=== PATIENT | male | born 1955 | race Caucasian/White ===

== ENCOUNTER 2016-09-08 14:07 | Emergency (ER) | payer SELFPAY ==
[~2016-09-08] VITALS: Ht 172.7 cm; Wt 81.6 kg
[2016-09-08] MEDS ORDERED: IV NORMAL SALINE 1000ML BAG 1,000 ML IV SCH (15:10)
[2016-09-08 15:12] VITALS: BP 143/75
[2016-09-08] MEDS ORDERED: ONDANSETRON PF 4 MG/2 ML VIAL. IV ONE (15:15)
[2016-09-08] MEDS ORDERED: MECLIZINE HCL 12.5 MG TABLET. PO ONE (15:15)
[2016-09-08 15:29] LABS: BASO % 0 % (0-3); EOS % 1 % (0-3); HEMATOCRIT 44.3 % (39.0-53.0); HEMOGLOBIN 14.8 g/dL (13.0-17.5); LYMPH # 1.6 x10^3/uL (1.0-4.8); LYMPH % 24 % (24-48); MEAN CORPUSCULAR HEMOGLOBIN 32 pg (25-35); MEAN CORPUSCULAR HGB CONC 33 g/dL (31-37); MEAN CORPUSCULAR VOLUME 96 fL (79-100); MONO % 9 % (0-9); NEUT % 66 % (31-73); PLATELET COUNT 227 x10^3/uL (140-400); RED BLOOD COUNT 4.63 x10^6/uL (4.30-5.70); RED CELL DISTRIBUTION WIDTH 13.5 % (11.5-14.5); WHITE BLOOD COUNT 6.6 x10^3/uL (4.0-11.0)
--- NOTE | 2016-09-08 15:39 | PHYS DOC ---
Past Medical History Past Medical History: High Cholesterol, Prostatitis Past Surgical History: No Surgical History Alcohol Use: Occasionally Drug Use: Marijuana Adult General Chief Complaint Chief Complaint: DIZZY/LIGHT HEADED HPI HPI Patient is a 60 year old male who presents with for intermittent dizziness/ lightheadedness that occurs when he goes from seated to standing position that started this morning. He states he gets very lightheaded, his vision narrows, and he feels he will pass out when he tries to stand up. He also has some nausea during that time. He denies symptoms currently. He denies chest pain, dyspnea, abdominal pain (as opposed to triage), fever or chills, vomiting, diarrhea, constipation, dysuria, hematuria, leg pain or swelling, palpitations, diaphoresis, orthopnea, headache, vision changes, diplopia. Review of Systems Review of Systems Constitutional: Denies fever or chills [] Eyes: Denies change in visual acuity, redness, or eye pain [] HENT: Denies nasal congestion or sore throat [] Respiratory: Denies cough or shortness of breath [] Cardiovascular: No additional information not addressed in HPI [] GI: Denies abdominal pain, nausea, vomiting, bloody stools or diarrhea [] : Denies dysuria or hematuria [] Musculoskeletal: Denies back pain or joint pain [] Integument: Denies rash or skin lesions [] Neurologic: Denies headache, focal weakness or sensory changes [] Endocrine: Denies polyuria or polydipsia [] Current Medications Current Medications Current Medications Medications (Trade) Dose Ordered Sig/Philomena Start Time Stop Time Status Last Admin Dose Admin Meclizine HCl (Antivert) 25 mg 1X ONCE 09/08/16 15:15 09/08/16 15:29 DC 09/08/16 15:21 25 MG Ondansetron HCl (Zofran) 4 mg 1X ONCE 09/08/16 15:15 09/08/16 15:29 DC 09/08/16 15:21 4 MG Sodium Chloride 1,000 ml @ 1,000 mls/hr Q1H 09/08/16 15:10 09/08/16 16:09 DC 09/08/16 15:21 1,000 MLS/HR Allergies Allergies Allergies Coded Allergies Type Severity Reaction Last Updated Verified No Known Drug Allergies 09/08/16 No Physical Exam Physical Exam Constitutional: Well developed, well nourished, no acute distress, non-toxic appearance. [] HENT: Normocephalic, atraumatic, bilateral external ears normal, oropharynx moist, no oral exudates, nose normal. [] Eyes: PERRLA, EOMI, conjunctiva normal, no discharge. [] Neck: Normal range of motion, supple. [] Cardiovascular:Heart rate regular rhythm [] Lungs & Thorax: Bilateral breath sounds clear to auscultation [] Abdomen: Bowel sounds normal, soft, no tenderness. [] Skin: Warm, dry, no erythema, no rash. [] Back: Normal range of motion. [] Extremities: No tenderness, ROM intact, no edema. [] Neurologic: Alert and oriented X 3, normal motor function, normal sensory function, no focal deficits noted, cranial nerves II through XII intact, no nystagmus. [] Psychologic: Affect normal, judgement normal, mood normal. [] Current Patient Data Vital Signs Vital Signs Date Time Temp Pulse Resp B/P (MAP) Pulse Ox O2 Delivery O2 Flow Rate FiO2 09/08/16 14:07 98.2 58 22 156/86 (109) 98 Room Air 98.2 Lab Values Laboratory Tests Test 09/08/16 14:21 09/08/16 16:05 White Blood Count 6.6 x10^3/uL (4.0-11.0) Red Blood Count 4.63 x10^6/uL (4.30-5.70) Hemoglobin 14.8 g/dL (13.0-17.5) Hematocrit 44.3 % (39.0-53.0) Mean Corpuscular Volume 96 fL (79-100) Mean Corpuscular Hemoglobin 32 pg (25-35) Mean Corpuscular Hemoglobin Concent 33 g/dL (31-37) Red Cell Distribution Width 13.5 % (11.5-14.5) Platelet Count 227 x10^3/uL (140-400) Neutrophils (%) (Auto) 66 % (31-73) Lymphocytes (%) (Auto) 24 % (24-48) Monocytes (%) (Auto) 9 % (0-9) Eosinophils (%) (Auto) 1 % (0-3) Basophils (%) (Auto) 0 % (0-3) Neutrophils # (Auto) 4.4 x10^3uL (1.8-7.7) Lymphocytes # (Auto) 1.6 x10^3/uL (1.0-4.8) Monocytes # (Auto) 0.6 x10^3/uL (0.0-1.1) Eosinophils # (Auto) 0.1 x10^3/uL (0.0-0.7) Basophils # (Auto) 0.0 x10^3/uL (0.0-0.2) Sodium Level 141 mmol/L (136-145) Potassium Level 4.1 mmol/L (3.5-5.1) Chloride Level 107 mmol/L (98-107) Carbon Dioxide Level 26 mmol/L (21-32) Anion Gap 8 (6-14) Blood Urea Nitrogen 23 mg/dL (8-26) Creatinine 1.0 mg/dL (0.7-1.3) Estimated GFR (Cockcroft-Gault) 76.0 Glucose Level 104 mg/dL (70-99) H Calcium Level 9.0 mg/dL (8.5-10.1) Troponin I Quantitative < 0.017 ng/mL (0.000-0.055) Laboratory Tests 09/08/16 14:21 Laboratory Tests 09/08/16 16:05 EKG EKG EKG as interpreted by me as normal sinus rhythm, rate 50, no ST-T changes, normal intervals, no ectopy Radiology/Procedures Radiology/Procedures CT head without contrast per radiology No acute intracranial process. Course & Med Decision Making Course & Med Decision Making Pertinent Labs and Imaging studies reviewed. (See chart for details) Workup is unremarkable. He is feeling better after medications, with resolution of his symptoms. He is ambulatory with steady gait. Return precautions given. He understands and agrees with plan. Dragon Disclaimer Dragon Disclaimer This electronic medical record was generated, in whole or in part, using a voice recognition dictation system. Departure Departure Impression: Primary Impression: Episodic lightheadedness Disposition: 01 HOME, SELF-CARE Condition: STABLE Patient Instructions: Dehydration, Adult, [id number], Vertigo, [id number] Additional Instructions: He was seen for lightheadedness and dizziness. This could be dehydration or vertigo. Drink liquids to stay hydrated. Take meclizine as needed for dizziness. Follow-up with your primary care doctor within one week. Return for any concerns. Scripts Meclizine Hcl (MECLIZINE HCL) 25 Mg Tablet 1 TAB PO PRN TID Y for DIZZINESS, #10 TAB Prov: Hanna LARIOS MD 09/08/16 Hanna LARIOS MD September 08, 2016 15:39
[2016-09-08 16:41] LABS: POTASSIUM 4.1 mmol/L (3.5-5.1)
[2016-09-08] MEDS ORDERED: MECL25TA3 PO (17:52)
--- NOTE | 2016-09-08 19:26 | EKG ---
[facility] [address] [place] [address] Test Date: 2016-09-08 Test Time: 14:52:47 Pat Name: PARVIN DENNIS Department: Room: Gender: M Mh Teacher: : 1955 Requested By: Hanna LARIOS Order Number: [id number] Reading MD: Kelsea Garcia Measurements Intervals [place] Rate: 50 P: 0 [place]: 162 QRS: 30 QRSD: 74 T: 37 QT: 424 QTc: 389 Interpretive Statements SINUS RHYTHM QRS(T) CONTOUR ABNORMALITY CANNOT RULE OUT ANTEROSEPTAL MYOCARDIAL DAMAGE RI6.01 Unconfirmed report No previous ECG available for comparison Electronically Signed On 09-10-2016 21:22:59 CDT by Kelsea Garcia
--- NOTE | 2016-09-08 19:26 | RAD ---
INDICATION: Dizziness COMPARISON: None TECHNIQUE: Axial, noncontrast CT images obtained through the head. One or more of the following individualized dose reduction techniques were utilized for this examination: 1. Automated exposure control; 2. Adjustment of the mA and/or kV according to patient size; 3. Use of iterative reconstruction technique. FINDINGS: No acute intracranial process is identified, specifically no acute blood products, midline shift, mass effect or extra-axial fluid collections. Ventricles and sulci appear appropriate for patient's age. Basilar cisterns are maintained. The visualized paranasal sinuses are clear. Mastoid air cells are clear. No calvarial fracture is present. Overlying scalp is intact. IMPRESSION: No acute intracranial process. Electronically signed by: Eileen Sanchez (September 08, 2016 16:02:47)
== END 2016-09-08 18:19 | disposition home or self-care (01) ==
LOC: ER 15:55
DX: R42 Dizziness and giddiness (principal); E78.00 Pure hypercholesterolemia, unspecified; Z87.19 Personal history of other diseases of the digestive system; F12.10 Cannabis abuse, uncomplicated
CPT/HCPCS: 36415; 70450; 80048; 84484; 85027; 93005; 96361; 96374; 99285; J2405; J7030; J8597